=== PATIENT | male | born 1970 | race Caucasian/White ===

== ENCOUNTER 2020-11-28 17:54 | Inpatient (IN) | payer MEDICAID ==
[~2020-11-28] VITALS: Ht 177.8 cm; Wt 139.7 kg
[2020-11-28] MEDS ORDERED: Insulin Reg/NS 100units/100mL 100 ML IV PRN (18:10)
[2020-11-28 18:54] LABS: ABG BASE EXCESS -21.4 mmol/L (-2.0-2.0); ABG HCO3 6.1 mmol/L (22.0-26.0); ABG OXYGEN SATURATION 93.5 % (94-97); ABG PCO2 (T) 18.8 mmHg (35.0-48.0); ABG PO2 (T) 73.2 mmHg (75.0-100.0); ALLEN'S TEST POSITIVE; FCOHb 0.5 % (0.0-3.9); FLOW 6 L/min; FMetHb 0.3 % (0.0-1.5); FO2Hb 92.8 % (94-97); PATIENT TEMPERATURE 36.2; TOTAL HEMOGLOBIN 15.8 G/dl (14.0-18.0)
--- NOTE | 2020-11-28 19:05 | NUR ---
Brother, Jeremie Estrada: [phone]. More information about patient's hx: [phone], ex Ruthann
[2020-11-28] MEDS ORDERED: sodium bicarbonate (8.4%) inj. 150 MEQ in dextrose 5%-water 1,000 ML IV SCH (19:40)
[2020-11-28] MEDS ORDERED: morphine 4 MG/ML inj SYRINge IV ONE (20:15)
[2020-11-28 20:37] LABS: HEMATOCRIT 49.2 % (42.0-52.0); HEMOGLOBIN 15.6 g/dl (14.0-17.9); LYMPHOCYTES % (AUTO) 5.8 % (21-51); MEAN CORPUSCULAR HEMOGLOBIN 30.1 PG (27.0-31.0); MEAN CORPUSCULAR HGB CONC 31.7 g/dL (33.0-36.5); MEAN CORPUSCULAR VOLUME 95.1 FL (78-98); MEAN PLATELET VOLUME 9.1 FL (7.4-10.4); NEUTROPHILS % (AUTO) 82.2 % (42-75); PLATELET COUNT 329 X10'3 (140-440); RED BLOOD COUNT 5.18 X10'6 (4.70-6.10); RED CELL DISTRIBUTION WIDTH 14.3 % (11.5-14.5); WHITE BLOOD COUNT 17.6 X10'3 (4.5-11.0)
[2020-11-28 20:38] LABS: BASOPHILS # (AUTO) 0.1 X10'3 (0-0.2); BASOPHILS % (AUTO) 0.5 % (0-1); EOSINOPHILS % (AUTO) 0.1 % (0-6); MONOCYTES % (AUTO) 11.4 % (2-12); NEUTROPHILS # (AUTO) 14.5 X10'3 (1.8-7.7)
[2020-11-28 20:45] LABS: PARTIAL THROMBOPLASTIN TIME 27 SECONDS (22-32)
[2020-11-28 20:54] LABS: ALANINE AMINOTRANSFERASE 27 U/L (12-78); ALBUMIN 2.7 G/DL (3.4-5.0); ALBUMIN/GLOBULIN RATIO 0.5 (1.1-1.5); ALKALINE PHOSPHATASE 131 IU/L (46-116); ANION GAP 30 (8-16); ASPARTATE AMINO TRANSFERASE 7 U/L (10-37); BILIRUBIN,TOTAL 0.5 MG/DL (0.1-1.0); BLOOD UREA NITROGEN 56 MG/DL (7-18); BUN/CREATININE RATIO 27.6 (5.4-32.0); CALCIUM 9.1 MG/DL (8.5-10.1); CHLORIDE 110 MMOL/L (99-107); CHOL/HDL RATIO 4.5 (0.00-4.99); CHOLESTEROL 200 MG/DL (0-200); CREATININE 2.03 MG/DL (0.60-1.10); HDL CHOLESTEROL 44 MG/DL (35-60); LDL CHOLESTEROL 103 MG/DL (50-100); MAGNESIUM 2.5 MG/DL (1.5-2.4); PHOSPHORUS 3.7 MG/DL (2.3-4.5); POTASSIUM 4.3 MMOL/L (3.5-5.1); SODIUM 147 MMOL/L (135-145); TOTAL PROTEIN 7.9 G/DL (6.4-8.2); TRIGLYCERIDES 346 MG/DL (20-135); eGFR 35 ML/MIN
[2020-11-28 20:57] LABS: GLUCOSE 643 MG/DL (70-104); TOTAL CARBON DIOXIDE 6.9 MMOL/L (24-32)
[2020-11-28 21:28] LABS: TOTAL CELLS COUNTED 100
[2020-11-28 21:29] LABS: ANISOCYTOSIS FEW; PLATELET ESTIMATE NORMAL
--- NOTE | 2020-11-28 21:38 | NUR ---
MD Mitchell contacted regarding patient's blood sugar and current lab results, MD ordering VBG.
[2020-11-28 21:54] LABS: OXYGEN SATURATION (MIXED VEN) 72.8 % (60-80)
[2020-11-28] MEDS ORDERED: potassium CL 20mEq in D5-1/2NS 1,000 ML IV PRN (21:55)
[2020-11-28] MEDS ORDERED: sodium bicarbonate (8.4%) inj. 50 MEQ in dextrose 5% water 500ml 250 ML IV PRN (21:55)
[2020-11-28] MEDS: Insulin Reg/NS 100units/100mL 100 ML IV SCH (21:55)
[2020-11-28] MEDS ORDERED: sodium phosphate inj. 15 MMOL in dextrose 5%-water 250 ML IV PRN (21:55)
[2020-11-28] MEDS ORDERED: sodium bicarbonate (8.4%) inj. 100 MEQ in dextrose 5% water 500ml 500 ML IV PRN (21:55)
[2020-11-28] MEDS ORDERED: potassium Cl 40MEQ/1/2NS 520ml 520 ML IV PRN ×2 (21:55)
[2020-11-28] MEDS ORDERED: insulin regular, human U-100 3ml vial - multi-dose IV PRN (21:55)
[2020-11-28] MEDS ORDERED: potassium Cl 20 mEq SR tablet PO PRN ×2 (21:55)
[2020-11-28] MEDS ORDERED: sodium phosphate inj. 30 MMOL in dextrose 5%-water 250 ML IV PRN (21:55)
[2020-11-28] MEDS ORDERED: Neutra Phos packet PO PRN (21:55)
[2020-11-28 22:57] LABS: LIPASE 2914 U/L (73-393)
[2020-11-28 22:58] LABS: URINE AMPHETAMINE SCREEN NEGATIVE (Neg); URINE BARBITUATE SCREEN NEGATIVE (Neg); URINE BENZODIAZEPINES SCREEN NEGATIVE (Neg); URINE CANNABINOID SCREEN NEGATIVE (Neg); URINE COCAINE SCREEN NEGATIVE (Neg); URINE METHADONE SCREEN NEGATIVE (Neg); URINE OPIATE SCREEN POSITIVE (Neg); URINE PHENCYCLIDINE SCREEN NEGATIVE (Neg)
[2020-11-29] VITALS (22 sets, daily range): BP systolic 133–183; BP diastolic 54–94
--- NOTE | 2020-11-29 00:26 | NUR ---
Patient in room ED 4. I have received report from RELL Khoury and had the opportunity to ask questions.
[2020-11-29] MEDS ORDERED: NO HOME MEDS (00:29)
--- NOTE | 2020-11-29 01:00 | NUR ---
Patient arrived to ICU bed 2014 via [facility] with SPRAY GUN REPAIRER Iraida in attendance. Patient slid over to ICU bed via slide board. Patient placed on monitor. Patient very sleepy. Does wake up to verbal stimuli and will open his eyes to commands, oriented to person and place. Patient continues to be confused and attempts to pull at lines. Upper extremities with soft restraints in place. Oxygen via nasal cannula at 6 lpm currently in patients mouth as patient is breathing through his mouth. Blood glucose assessed to be 511. Upon assumption of care patient with Insulin infusing at 7 u/hr., Bicarb 8.4% 150 mEq in D5W at 200ml/hr to right femoral quad lumen central line. 2 RN skin assessment completed. Bottom is reddened and blanchable. Foam dressing in place. Patient with venous insufficiency to lower extremities, discoloration and dry skin noted.
--- NOTE | 2020-11-29 02:00 | NUR ---
Dr. Mitchell called re: Clarification on what protocol he would like to use. PER MD use DKA protocol. with the exception of the fluid order. Order for 150mEq Sodium Bicarb in sterile water at 200ml./hr. Okay to order labs per protocol. When blood glucose is less than 250 mg/dL call MD for further orders.
[2020-11-29] MEDS ORDERED: sodium bicarbonate (8.4%) inj. 150 MEQ in water for injection, sterile 1,000 ML IV SCH (02:05)
--- NOTE | 2020-11-29 02:14 | NUR ---
Pharmacy called, hospital does not have sterile water for infusion. Will call back MD and have MD speak to pharmacist.
[2020-11-29 03:10] LABS: BASOPHILS % (AUTO) 0.2 % (0-1); EOSINOPHILS % (AUTO) 0 % (0-6); HEMATOCRIT 42.9 % (42.0-52.0); HEMOGLOBIN 14.4 g/dl (14.0-17.9); LYMPHOCYTES # (AUTO) 0.7 X10'3 (1.1-4.8); LYMPHOCYTES % (AUTO) 4.8 % (21-51); MEAN CORPUSCULAR HEMOGLOBIN 29.9 PG (27.0-31.0); MEAN CORPUSCULAR HGB CONC 33.5 g/dL (33.0-36.5); MEAN CORPUSCULAR VOLUME 89.2 FL (78-98); MEAN PLATELET VOLUME 8.5 FL (7.4-10.4); MONOCYTES # (AUTO) 1.8 X10'3 (0-0.9); MONOCYTES % (AUTO) 12.1 % (2-12); NEUTROPHILS % (AUTO) 82.9 % (42-75); PLATELET COUNT 263 X10'3 (140-440); RED BLOOD COUNT 4.81 X10'6 (4.70-6.10); RED CELL DISTRIBUTION WIDTH 13.9 % (11.5-14.5); WHITE BLOOD COUNT 14.5 X10'3 (4.5-11.0)
[2020-11-29 03:25] LABS: ALBUMIN 2.4 G/DL (3.4-5.0); ANION GAP 16 (8-16); BLOOD UREA NITROGEN 48 MG/DL (7-18); BUN/CREATININE RATIO 25.4 (5.4-32.0); CALCIUM 8.7 MG/DL (8.5-10.1); CHLORIDE 115 MMOL/L (99-107); CREATININE 1.89 MG/DL (0.60-1.10); GLUCOSE 446 MG/DL (70-104); POTASSIUM 3.4 MMOL/L (3.5-5.1); SODIUM 152 MMOL/L (135-145); TOTAL CARBON DIOXIDE 20.8 MMOL/L (24-32); eGFR 38 ML/MIN
[2020-11-29 03:43] LABS: LIPASE 2021 U/L (73-393)
[2020-11-29] MEDS ORDERED: potassium cl 20mEq in 1/2 NS 1,000 ML IV SCH (04:00)
[2020-11-29] MEDS: Insulin Reg/NS 100units/100mL 100 ML IV SCH ×2 (04:42→12:13)
[2020-11-29] MEDS ORDERED: potassium CL 20mEq in D5-1/2NS 1,000 ML IV PRN (05:35)
[2020-11-29] MEDS ORDERED: potassium phosphate inj 30 MMOL in normal saline 500ml IV soln 500 ML IV ONE ×3 (06:00→11:30)
--- NOTE | 2020-11-29 06:00 | NUR ---
Patient in room CICU 2014. I have received report from Shelia ZACARIAS and had the opportunity to ask questions and assume patient care.
[2020-11-29 06:18] LABS: PLATELET ESTIMATE NORMAL; TOTAL CELLS COUNTED 100
--- NOTE | 2020-11-29 06:23 | NUR ---
Problems reprioritized. Patient report given, questions answered & plan of care reviewed with RELL Driscoll.
[2020-11-29] MEDS: enoxaparin 30mg/0.3ml syringe SUBCUT SCH (07:43)
[2020-11-29] MEDS: K and/or MAG REPLACEMENT MC SCH ×2 (07:43→20:00)
[2020-11-29] MEDS ORDERED: CefTRIAXone/D5W-Rocephin 1gm 50 ML IV SCH (08:00)
[2020-11-29] MEDS ORDERED: doxycycline inj 100 MG in normal saline 100ml IV soln 100 ML IV SCH (08:00)
[2020-11-29] MEDS ORDERED: potassium phosphate inj 15 MMOL in NS 250ml IV soln 250 ML IV ONE (08:15)
[2020-11-29 09:29] LABS: ALBUMIN 2.4 G/DL (3.4-5.0); ANION GAP 15 (8-16); BLOOD UREA NITROGEN 41 MG/DL (7-18); BUN/CREATININE RATIO 26.8 (5.4-32.0); CHLORIDE 120 MMOL/L (99-107); CREATININE 1.53 MG/DL (0.60-1.10); GLUCOSE 233 MG/DL (70-104); POTASSIUM 3.1 MMOL/L (3.5-5.1); TOTAL CARBON DIOXIDE 21.7 MMOL/L (24-32); eGFR 48 ML/MIN
[2020-11-29 09:32] LABS: SODIUM 157 MMOL/L (135-145)
--- NOTE | 2020-11-29 10:46 | NUR ---
DM Consult "new DX": Pt admit DX DKA, acute pancreatitis, renal failure, PNA, and ALOC per EMR. Pt AOx2/confused w/ A1C 12.1 and GLU 643 on admit now down to 243 this AM per EMR. Lipase currently 2020 down from 2914 on admit w/ notable TG 346. Pt remains NPO at this time receiving IV fluids and insulin drip. Would benefit from thorough DM ed once more appropriate and ensured pt has been given DM DX by MD prior to RD visit this admit. Will monitor for PO diet advancement and tolerance as medically indicated. Rec: 1. advance diet as medically indicated to carb controlled; consider EDUCATION GENERAL MANAGER BSS if ALOC persists 2. monitor for ONS needs pending PO hx 3. routine bowel care 4. weekly wts 5. DM ed once appropriate prior to discharge; following DM DX by MD prior to RD visit Addendum: 11/29/20 at [address] Amended: Links added.
[2020-11-29] MEDS ORDERED: pantoprazole 40 MG vial IV ONE (11:24)
[2020-11-29] MEDS: Potassium Cl inj 40 MEQ in dextrose 5%-water 980 ML IV SCH ×2 (12:37→21:25)
--- NOTE | 2020-11-29 13:39 | NUR ---
Daughter Jaylene at bedside, pt's 3 rings from right hand were removed due to swelling. Jaylene to take rings home.
[2020-11-29] MEDS ORDERED: vancomycin/NS 1 GM ADD-VANTAGE 250 ML IV SCH (15:55)
--- NOTE | 2020-11-29 16:57 | NUR ---
Informed Dr. Reyna that patient pulled central line out, even while restrained. Unable to get another PIV access. Dr. Reyna stated to stop insulin drip and d5w drip and to give kphos 30 mmol and that giving the kphos is the most important thing to give right now. stated to start accuchecks Q4hr and follow herglycemic protocol.
[2020-11-29] MEDS ORDERED: VANCOmycin 2,000MG in NS 500ml IV soln IV ONE (17:00)
[2020-11-29 17:04] LABS: MAGNESIUM 2.2 MG/DL (1.5-2.4); POTASSIUM 3.2 MMOL/L (3.5-5.1)
[2020-11-29 17:47] LABS: PHOSPHORUS 1.2 MG/DL (2.3-4.5)
[2020-11-29] MEDS ORDERED: glucagon, human recombinant 1mg kit SUBCUT PRN (18:15)
[2020-11-29] MEDS ORDERED: dextrose 50%-water 50ml dispensing syringe IV PRN ×2 (18:15)
[2020-11-29] MEDS ORDERED: dextrose ORAL solution 15 GM/59 ML bottle PO PRN ×2 (18:15)
--- NOTE | 2020-11-29 18:19 | NUR ---
Problems reprioritized. Patient report given, questions answered & plan of care reviewed with Shelia ZACARIAS.
--- NOTE | 2020-11-29 18:20 | NUR ---
Patient in room CICU 2014. I have received report from RELL Driscoll and had the opportunity to ask questions and assume patient care.
[2020-11-29] MEDS: lactobacillus rhamnosus 10,000 MMU CELLS/CAPSULE PO SCH (20:00)
[2020-11-29] MEDS: insulin Lispro (HumaLOG) vial - multi-dose SQ SCH (20:09)
[2020-11-29] MEDS: pantoprazole 40 MG vial IV SCH (20:11)
[2020-11-29] MEDS ORDERED: insulin glargine (Lantus) pen - multi-dose SQ SCH (21:00)
--- NOTE | 2020-11-29 21:00 | NUR ---
Patient with increased fatigue, would wake up and fall right back to sleep. Patient would have periods apnea and moist non- productive cough. With the periods of apnea, patient with decreased heart rate to the 60's. ABG and Labs ordered. Patient placed on Venturi mask at 35% fiO2.
[2020-11-29] MEDS: cefepime 1GM/NS ADD-VANTAGE 100 ML IV SCH (21:08)
[2020-11-29 21:48] LABS: ABG BASE EXCESS -8.2 mmol/L (-2.0-2.0); ABG HCO3 18.3 mmol/L (22.0-26.0); ABG OXYGEN SATURATION 94.3 % (94-97); ABG PCO2 (T) 41.9 mmHg (35.0-48.0); ALLEN'S TEST Modified; FCOHb 0.4 % (0.0-3.9); FLOW 4 L/min; FMetHb 0.3 % (0.0-1.5); FO2Hb 93.6 % (94-97); PATIENT TEMPERATURE 37.5; TOTAL HEMOGLOBIN 14.2 G/dl (14.0-18.0)
[2020-11-29 22:27] LABS: BASOPHILS % (AUTO) 0.3 % (0-1); EOSINOPHILS % (AUTO) 0.1 % (0-6); HEMATOCRIT 40.1 % (42.0-52.0); HEMOGLOBIN 13.5 g/dl (14.0-17.9); LYMPHOCYTES # (AUTO) 0.7 X10'3 (1.1-4.8); LYMPHOCYTES % (AUTO) 4.8 % (21-51); MEAN CORPUSCULAR HEMOGLOBIN 30.1 PG (27.0-31.0); MEAN CORPUSCULAR HGB CONC 33.8 g/dL (33.0-36.5); MEAN PLATELET VOLUME 8.6 FL (7.4-10.4); MONOCYTES # (AUTO) 1.2 X10'3 (0-0.9); MONOCYTES % (AUTO) 7.9 % (2-12); NEUTROPHILS # (AUTO) 12.9 X10'3 (1.8-7.7); NEUTROPHILS % (AUTO) 86.9 % (42-75); PLATELET COUNT 216 X10'3 (140-440); RED CELL DISTRIBUTION WIDTH 13.6 % (11.5-14.5); WHITE BLOOD COUNT 14.9 X10'3 (4.5-11.0)
[2020-11-29 22:33] LABS: ALANINE AMINOTRANSFERASE 22 U/L (12-78); ALBUMIN/GLOBULIN RATIO 0.4 (1.1-1.5); ALKALINE PHOSPHATASE 97 IU/L (46-116); ANION GAP 17 (8-16); ASPARTATE AMINO TRANSFERASE 12 U/L (10-37); BILIRUBIN,TOTAL 0.4 MG/DL (0.1-1.0); BLOOD UREA NITROGEN 32 MG/DL (7-18); BUN/CREATININE RATIO 21.9 (5.4-32.0); CALCIUM 8.4 MG/DL (8.5-10.1); CHLORIDE 122 MMOL/L (99-107); CREATININE 1.46 MG/DL (0.60-1.10); GLUCOSE 360 MG/DL (70-104); MAGNESIUM 2.2 MG/DL (1.5-2.4); PHOSPHORUS 2.7 MG/DL (2.3-4.5); POTASSIUM 4.1 MMOL/L (3.5-5.1); TOTAL CARBON DIOXIDE 19.7 MMOL/L (24-32); TOTAL PROTEIN 6.8 G/DL (6.4-8.2); eGFR 51 ML/MIN
[2020-11-29 22:36] LABS: SODIUM 159 MMOL/L (135-145)
[2020-11-29] MEDS ORDERED: dextrose 5%-1/4 normal saline 1,000 ML IV SCH (23:05)
[2020-11-29] MEDS ORDERED: sodium chloride 0.45% 1,000 ML IV SCH (23:10)
[2020-11-29] MEDS: insulin glargine (Lantus) pen - multi-dose SQ SCH (23:17)
--- NOTE | 2020-11-29 23:30 | NUR ---
Dr. Luna called re: patients lab results, chest x-ray and mental status. will place order for BiPap.
[2020-11-30] VITALS (24 sets, daily range): BP systolic 100–158; BP diastolic 63–95
[2020-11-30] MEDS: insulin Lispro (HumaLOG) vial - multi-dose SQ SCH ×6 (01:33→20:41)
[2020-11-30] MEDS ORDERED: labetalol 20mg/4ml (5mg/ml) syringe IV PRN (03:40)
[2020-11-30] MEDS: vancomycin/NS 1 GM ADD-VANTAGE 250 ML IV SCH ×3 (04:24→21:54)
--- NOTE | 2020-11-30 05:00 | NUR ---
Patient cardiac rhythm changed to A-Fib with RVR with rate in the 180's. Dr. Luna called. Vagal attempted without success. to place orders for Lopressor and Amiodarone. Charge nurse aware. AM labs drawn and sent to lab.
[2020-11-30] MEDS ORDERED: amiodarone 150mg/dext, iso-os 100 ML IV ONE (05:30)
[2020-11-30] MEDS ORDERED: metoprolol tartrate 1mg/ml inj IV ONE ×2 (05:30→05:32)
[2020-11-30] MEDS: amiodarone/D5 360MG/200ML BAG 200 ML IV SCH ×4 (05:42→22:26)
--- NOTE | 2020-11-30 06:00 | NUR ---
Patient in room CICU 2014. I have received report from Shelia ZACARIAS and had the opportunity to ask questions and assume patient care.
--- NOTE | 2020-11-30 06:20 | NUR ---
Patient in room CICU 2014. I have received report from RELL Posada and had the opportunity to ask questions and assume patient care.
--- NOTE | 2020-11-30 06:37 | NUR ---
Problems reprioritized. Patient report given, questions answered & plan of care reviewed with RELL Driscoll.
[2020-11-30 06:44] LABS: BASOPHILS % (AUTO) 0.2 % (0-1); EOSINOPHILS % (AUTO) 0.1 % (0-6); HEMATOCRIT 39.3 % (42.0-52.0); HEMOGLOBIN 13.1 g/dl (14.0-17.9); LYMPHOCYTES # (AUTO) 1.3 X10'3 (1.1-4.8); LYMPHOCYTES % (AUTO) 8.8 % (21-51); MEAN CORPUSCULAR HEMOGLOBIN 29.5 PG (27.0-31.0); MEAN CORPUSCULAR HGB CONC 33.4 g/dL (33.0-36.5); MEAN CORPUSCULAR VOLUME 88.4 FL (78-98); MEAN PLATELET VOLUME 8.6 FL (7.4-10.4); MONOCYTES # (AUTO) 1.2 X10'3 (0-0.9); MONOCYTES % (AUTO) 7.9 % (2-12); NEUTROPHILS # (AUTO) 12.6 X10'3 (1.8-7.7); PLATELET COUNT 217 X10'3 (140-440); RED BLOOD COUNT 4.45 X10'6 (4.70-6.10); RED CELL DISTRIBUTION WIDTH 13.7 % (11.5-14.5); WHITE BLOOD COUNT 15.2 X10'3 (4.5-11.0)
[2020-11-30 07:12] LABS: ALANINE AMINOTRANSFERASE 21 U/L (12-78); ALBUMIN/GLOBULIN RATIO 0.4 (1.1-1.5); ALKALINE PHOSPHATASE 98 IU/L (46-116); ANION GAP 16 (8-16); ASPARTATE AMINO TRANSFERASE 11 U/L (10-37); BILIRUBIN,TOTAL 0.4 MG/DL (0.1-1.0); BLOOD UREA NITROGEN 30 MG/DL (7-18); BUN/CREATININE RATIO 21.4 (5.4-32.0); CALCIUM 8.4 MG/DL (8.5-10.1); CHLORIDE 125 MMOL/L (99-107); GLUCOSE 286 MG/DL (70-104); MAGNESIUM 2.5 MG/DL (1.5-2.4); POTASSIUM 3.5 MMOL/L (3.5-5.1); TOTAL CARBON DIOXIDE 22.2 MMOL/L (24-32); eGFR 53 ML/MIN
[2020-11-30 07:21] LABS: SODIUM 163 MMOL/L (135-145)
[2020-11-30] MEDS: cefepime 1GM/NS ADD-VANTAGE 100 ML IV SCH ×2 (07:36→19:37)
[2020-11-30] MEDS: lactobacillus rhamnosus 10,000 MMU CELLS/CAPSULE PO SCH ×2 (07:36→19:37)
[2020-11-30] MEDS: pantoprazole 40 MG vial IV SCH ×2 (07:39→19:37)
[2020-11-30 07:40] LABS: TOTAL CELLS COUNTED 100
[2020-11-30] MEDS: enoxaparin 30mg/0.3ml syringe SUBCUT SCH (07:40)
[2020-11-30 07:41] LABS: PLATELET ESTIMATE NORMAL
[2020-11-30] MEDS ORDERED: diltiazem-NS 100mg/100ml 125 ML IV SCH (07:50)
[2020-11-30] MEDS ORDERED: diltiazem 5mg/ml 5ml inj. IV ONE (07:50)
--- NOTE | 2020-11-30 07:52 | NUR ---
Informed charge nurse Radha ZACARIAS that pt's heart rate is in the 160s in afib, Radha ZACARIAS notifed Dr. Jimenez and received orders.
[2020-11-30] MEDS: K and/or MAG REPLACEMENT MC SCH ×2 (08:00→20:00)
[2020-11-30] MEDS ORDERED: VANCOMYCIN LEVEL IV ONE (09:30)
[2020-11-30 09:41] LABS: MAGNESIUM 2.3 MG/DL (1.5-2.4); PHOSPHORUS 1.6 MG/DL (2.3-4.5); POTASSIUM 3.2 MMOL/L (3.5-5.1)
[2020-11-30] MEDS: dextrose 5%-water 1,000 ML IV SCH ×2 (09:42→19:52)
--- NOTE | 2020-11-30 10:00 | NUR ---
wound care orders for ulcers to BLE. no pictures in chart. Upon examination of BLE with primary nurse at bedside, no open wounds to either BLE. No signs of ulcers. Patient does have noted dryness to BLE which skin repair cream was given to nursing to be applied. Primary nurse agreed, no open wounds and wound care was noted needed.
[2020-11-30] MEDS ORDERED: digoxin 250mcg/ml 2ml ampule IV ONE (11:15)
--- NOTE | 2020-11-30 11:52 | NUR ---
Malnutrition Consult: Pt advanced to heart healthy/carb controlled diet PO pending. Pt has normal strength, no edema/wounds, and appears WD/WN during RD visible assessment at critical care rounds. Pt remains ALOC AOx2/confused and unsure of any wt loss hx per EMR. Does not meet minimum two malnutrition criteria at this time. Addendum: 11/30/20 at [address] Amended: Links added.
[2020-11-30] MEDS: Neutra Phos packet PO SCH ×2 (12:55→20:28)
[2020-11-30 13:26] LABS: CLARITY,URINE SLIGHTLY CLOUDY (Clear); COLOR,URINE YELLOW (Yellow); GLUCOSE, URINE >=1000 mg/dl (Neg); KETONES,URINE 15 mg/dl (Neg); LEUKOCYTE ESTERASE ,URINE NEGATIVE (Neg); NITRITES, URINE NEGATIVE (Neg); OCCULT BLOOD,URINE LARGE (Neg); PROTEIN,URINE 100 mg/dl (Neg); UROBILINOGEN,URINE 0.2 E.U/dL (0.2-1.0)
[2020-11-30] MEDS: diltiazem-NS 100mg/100ml 100 ML IV SCH ×2 (13:29→20:16)
[2020-11-30 13:30] LABS: UA COLLECTION TYPE FOLEY CATH
[2020-11-30 13:33] LABS: RBC,URINE 20-50 /HPF (0-2); WBC,URINE 0-4 /HPF (0-4)
[2020-11-30 13:34] LABS: BACTERIA,URINE 1+ /HPF (Neg)
[2020-11-30 13:35] LABS: MUCUS STRANDS NONE SEEN /LPF (Neg); SQUAMOUS EPITHELIAL CELL,UR FEW /LPF (FEW)
[2020-11-30 15:54] LABS: MAGNESIUM 2.3 MG/DL (1.5-2.4); PHOSPHORUS 1.6 MG/DL (2.3-4.5); POTASSIUM 3.2 MMOL/L (3.5-5.1)
--- NOTE | 2020-11-30 18:20 | NUR ---
Patient in room CICU 2015. I have received report from RELL Driscoll and had the opportunity to ask questions and assume patient care. Patient is currently restrained with sitter at bedside. Patient is groggy and does awaken to verbal stimuli. Patient is alert and oriented x3. Patient given discontinue criteria for wrist restraints. Patient was unaware that he had pulled out a IV line. Patient relates that he is "very thirsty and hungry". Plan of care reviewed with patient.
--- NOTE | 2020-11-30 18:20 | NUR ---
Problems reprioritized. Patient report given, questions answered & plan of care reviewed with RELL Posada.
--- NOTE | 2020-11-30 18:20 | NUR ---
Problems reprioritized. Patient report given, questions answered & plan of care reviewed with Shelia ZACARIAS.
--- NOTE | 2020-11-30 18:40 | NUR ---
Patient with nasal cannula in place at 0.5 lpm oxygen. Patient's wrist restraints removed. Assisted patient with eating dinner. Encouraged patient to feed himself, initially patient very weak, with encouragement patient became better at moving upper extremities. Patient educated on nutrition and fluid intake. Advised patient to take it slow and report any nausea.
[2020-11-30] MEDS: insulin glargine (Lantus) pen - multi-dose SQ SCH (20:42)
--- NOTE | 2020-11-30 22:00 | NUR ---
Patient placed on BiPap mask for sleep, patient is unrestrained, in view of RN. So far patient with appropriate behavior.
[2020-12-01] VITALS (19 sets, daily range): BP systolic 106–143; BP diastolic 59–89
[2020-12-01] MEDS: insulin Lispro (HumaLOG) vial - multi-dose SQ SCH ×5 (00:42→19:31)
[2020-12-01] MEDS: diltiazem-NS 100mg/100ml 100 ML IV SCH ×2 (01:22→08:28)
[2020-12-01 04:10] LABS: BASOPHILS # (AUTO) 0.1 X10'3 (0-0.2); BASOPHILS % (AUTO) 0.3 % (0-1); EOSINOPHILS # (AUTO) 0.1 X10'3 (0-0.9); EOSINOPHILS % (AUTO) 0.7 % (0-6); HEMATOCRIT 36.1 % (42.0-52.0); HEMOGLOBIN 12.2 g/dl (14.0-17.9); LYMPHOCYTES # (AUTO) 1.4 X10'3 (1.1-4.8); LYMPHOCYTES % (AUTO) 8.6 % (21-51); MEAN CORPUSCULAR HEMOGLOBIN 29.9 PG (27.0-31.0); MEAN CORPUSCULAR HGB CONC 33.8 g/dL (33.0-36.5); MEAN CORPUSCULAR VOLUME 88.4 FL (78-98); MEAN PLATELET VOLUME 8.6 FL (7.4-10.4); MONOCYTES # (AUTO) 1.1 X10'3 (0-0.9); MONOCYTES % (AUTO) 6.8 % (2-12); NEUTROPHILS # (AUTO) 13.9 X10'3 (1.8-7.7); NEUTROPHILS % (AUTO) 83.6 % (42-75); PLATELET COUNT 157 X10'3 (140-440); RED BLOOD COUNT 4.08 X10'6 (4.70-6.10); RED CELL DISTRIBUTION WIDTH 13.6 % (11.5-14.5); WHITE BLOOD COUNT 16.7 X10'3 (4.5-11.0)
[2020-12-01 04:19] LABS: ALANINE AMINOTRANSFERASE 18 U/L (12-78); ALBUMIN 1.8 G/DL (3.4-5.0); ALBUMIN/GLOBULIN RATIO 0.4 (1.1-1.5); ALKALINE PHOSPHATASE 98 IU/L (46-116); ANION GAP 9 (8-16); ASPARTATE AMINO TRANSFERASE 19 U/L (10-37); BILIRUBIN,TOTAL 0.4 MG/DL (0.1-1.0); BLOOD UREA NITROGEN 16 MG/DL (7-18); BUN/CREATININE RATIO 15.1 (5.4-32.0); CALCIUM 7.8 MG/DL (8.5-10.1); CHLORIDE 119 MMOL/L (99-107); CREATININE 1.06 MG/DL (0.60-1.10); GLUCOSE 242 MG/DL (70-104); MAGNESIUM 2.1 MG/DL (1.5-2.4); PHOSPHORUS 1.9 MG/DL (2.3-4.5); TOTAL CARBON DIOXIDE 26.8 MMOL/L (24-32); TOTAL PROTEIN 6.2 G/DL (6.4-8.2); eGFR 73 ML/MIN
[2020-12-01 04:21] LABS: SODIUM 155 MMOL/L (135-145)
[2020-12-01] MEDS: dextrose 5%-water 1,000 ML IV SCH ×2 (04:35→05:57)
[2020-12-01] MEDS ORDERED: POTASSIUM BICARB 20meq eff tab 20 MEQ TABLET.EFF PO PRN (04:45)
[2020-12-01] MEDS ORDERED: potassium phosphate inj 30 MMOL in normal saline 500ml IV soln 500 ML IV ONE (04:55)
--- NOTE | 2020-12-01 05:15 | NUR ---
Rounds with Dr. Mitchell. Critical lab values reviewed: K 3.0, Na 155, Phos 1.9, to order K/ Phos replacement.
[2020-12-01] MEDS: amiodarone/D5 360MG/200ML BAG 200 ML IV SCH (05:46)
--- NOTE | 2020-12-01 06:26 | NUR ---
Patient in room CICU 2014. I have received report from RELL Posada and had the opportunity to ask questions and assume patient care.
--- NOTE | 2020-12-01 06:26 | NUR ---
Problems reprioritized. Patient report given, questions answered & plan of care reviewed with RELL Cooper.
[2020-12-01] MEDS: pantoprazole 40 MG vial IV SCH ×2 (07:58→19:19)
[2020-12-01] MEDS: Neutra Phos packet PO SCH ×3 (07:59→20:52)
[2020-12-01] MEDS: POTASSIUM BICARB 20meq eff tab 20 MEQ TABLET.EFF PO PRN (07:59)
[2020-12-01] MEDS: lactobacillus rhamnosus 10,000 MMU CELLS/CAPSULE PO SCH ×2 (07:59→19:20)
[2020-12-01] MEDS: enoxaparin 30mg/0.3ml syringe SUBCUT SCH (08:00)
[2020-12-01 08:01] LABS: PLATELET ESTIMATE NORMAL; TOTAL CELLS COUNTED 100
[2020-12-01] MEDS: K and/or MAG REPLACEMENT MC SCH ×2 (08:11→19:21)
[2020-12-01] MEDS: cefepime 1GM/NS ADD-VANTAGE 100 ML IV SCH ×2 (09:18→19:19)
[2020-12-01] MEDS ORDERED: VANCOMYCIN LEVEL IV ONE (09:30)
[2020-12-01] MEDS: vancomycin/NS 1 GM ADD-VANTAGE 250 ML IV SCH (11:50)
[2020-12-01 12:07] LABS: VANCOMYCIN,TROUGH 9.3 UG/ML (6.0-14.0)
--- NOTE | 2020-12-01 14:15 | NUR ---
Patient in room PCU 3026. I have received report from RELL Calhoun and had the opportunity to ask questions and assume patient care.
--- NOTE | 2020-12-01 15:37 | NUR ---
0700-Patient alert and oriented, able to follow commands, speech garbled but appropriate, weak but improving., 1000- critical care rounds, transfer to PCU, increase lantus to 35 q hs. dc amiodarone IV, change to PO. PT eval and tx.
--- NOTE | 2020-12-01 15:38 | NUR ---
Problems reprioritized. Patient report given, questions answered & plan of care reviewed with Deborah .
--- NOTE | 2020-12-01 17:46 | NUR ---
Paged Dr. Zapata PAGER ID: [phone] MESSAGE: NEWTON Hernandez [id number]; patient's stomach very distended and rigid, hyperactive bowel sounds; nausea and some emesis. Deborah ZACARIAS [phone]
--- NOTE | 2020-12-01 18:24 | NUR ---
Patient in room PCU 3026. I have received report from RELL Goldman and had the opportunity to ask questions and assume patient care.
--- NOTE | 2020-12-01 18:38 | NUR ---
Problems reprioritized. Patient report given, questions answered & plan of care reviewed with RELL Almeida.
--- NOTE | 2020-12-01 19:02 | NUR ---
PAGER ID: [phone] MESSAGE: Re:Cesar Taylor admitted 11/28 for DKA pancreatitis and PNA pt currently on Cardizem drip running at 12 mg/hr on icu titrate protocol HR 112 bp 143/78 would like to know parameters for telemetry floor thank you Elle ZACARIAS ext [phone]
[2020-12-01] MEDS: amiodarone 200mg tablet PO SCH (19:20)
[2020-12-01] MEDS: VANCOmycin 1250MG/NS 250ml Bag 250 ML IV SCH (20:56)
[2020-12-01] MEDS: insulin glargine (Lantus) pen - multi-dose SQ SCH (20:58)
[2020-12-02] VITALS (15 sets, daily range): BP systolic 76–137; BP diastolic 41–80
[2020-12-02] MEDS: diltiazem-NS 100mg/100ml 100 ML IV SCH ×4 (02:10→23:29)
--- NOTE | 2020-12-02 03:56 | NUR ---
Md Peck RE: Cesar Taylor 50 M admitted 11/28 DKA, pancreatitis and PNA. wanted to make you aware pt On Cardizem drip at 12mg/hr had an episode of heart rate of 30. Current pulse is 86 blood pressure 119/63.
--- NOTE | 2020-12-02 04:00 | NUR ---
MD Peck gave telephone order to reduce Cardizem drip to 10 ml/hr due to episode of 30-RI and BP of 119/63. Will continue to monitor
--- NOTE | 2020-12-02 05:36 | NUR ---
MD Peck paged MESSAGE: Re: Cesar Taylor 50M tele [id number] admitted for DKA, pancreatitis and PNA, Pt went into Aflutter at 0500 and is currently in Aflutter. Currently on Cardizem drip at 10 mg/hr. RELL Almeida tele ext [phone]
--- NOTE | 2020-12-02 05:40 | NUR ---
MD Peck called back no change in orders will continue to monitor. FRANK 120/80 [phone]
--- NOTE | 2020-12-02 06:23 | NUR ---
Problems reprioritized. Patient report given, questions answered & plan of care reviewed with RELL Scales.
--- NOTE | 2020-12-02 06:25 | NUR ---
Patient in room PCU 3026. I have received report from Elle ZACARIAS and had the opportunity to ask questions and assume patient care.
[2020-12-02] MEDS: K and/or MAG REPLACEMENT MC SCH ×2 (08:00→20:00)
[2020-12-02] MEDS: VANCOmycin 1250MG/NS 250ml Bag 250 ML IV SCH ×2 (08:00→19:41)
[2020-12-02] MEDS: pantoprazole 40 MG vial IV SCH ×2 (08:13→20:24)
[2020-12-02] MEDS: lactobacillus rhamnosus 10,000 MMU CELLS/CAPSULE PO SCH ×2 (08:16→20:24)
[2020-12-02] MEDS: amiodarone 200mg tablet PO SCH ×2 (08:17→20:24)
[2020-12-02] MEDS: Neutra Phos packet PO SCH ×3 (08:17→20:24)
[2020-12-02] MEDS: enoxaparin 30mg/0.3ml syringe SUBCUT SCH (08:18)
--- NOTE | 2020-12-02 08:49 | NUR ---
Page sent to PICC nurse: I need help with an IV for Cesar Taylor room [id number]. We have tried without success, and he has incompatible medication. Thank you
[2020-12-02 09:13] LABS: BASOPHILS # (AUTO) 0.1 X10'3 (0-0.2); BASOPHILS % (AUTO) 0.4 % (0-1); EOSINOPHILS # (AUTO) 0.1 X10'3 (0-0.9); EOSINOPHILS % (AUTO) 0.7 % (0-6); HEMATOCRIT 37.8 % (42.0-52.0); HEMOGLOBIN 12.7 g/dl (14.0-17.9); LYMPHOCYTES # (AUTO) 1.8 X10'3 (1.1-4.8); LYMPHOCYTES % (AUTO) 12.3 % (21-51); MEAN CORPUSCULAR HEMOGLOBIN 29.3 PG (27.0-31.0); MEAN CORPUSCULAR HGB CONC 33.7 g/dL (33.0-36.5); MEAN CORPUSCULAR VOLUME 87.1 FL (78-98); MEAN PLATELET VOLUME 8.6 FL (7.4-10.4); MONOCYTES # (AUTO) 1.3 X10'3 (0-0.9); MONOCYTES % (AUTO) 9.3 % (2-12); NEUTROPHILS # (AUTO) 11.2 X10'3 (1.8-7.7); NEUTROPHILS % (AUTO) 77.3 % (42-75); PLATELET COUNT 154 X10'3 (140-440); RED BLOOD COUNT 4.33 X10'6 (4.70-6.10); RED CELL DISTRIBUTION WIDTH 13.7 % (11.5-14.5); WHITE BLOOD COUNT 14.5 X10'3 (4.5-11.0)
[2020-12-02 09:25] LABS: ALBUMIN 1.7 G/DL (3.4-5.0); ANION GAP 12 (8-16); BLOOD UREA NITROGEN 15 MG/DL (7-18); BUN/CREATININE RATIO 15.8 (5.4-32.0); CALCIUM 8.2 MG/DL (8.5-10.1); CHLORIDE 110 MMOL/L (99-107); CREATININE 0.95 MG/DL (0.60-1.10); GLUCOSE 244 MG/DL (70-104); POTASSIUM 3.5 MMOL/L (3.5-5.1); SODIUM 147 MMOL/L (135-145); TOTAL CARBON DIOXIDE 25.5 MMOL/L (24-32); eGFR 83 ML/MIN
[2020-12-02] MEDS: insulin Lispro (HumaLOG) vial - multi-dose SQ SCH ×3 (09:49→19:28)
[2020-12-02 09:52] LABS: TOTAL CELLS COUNTED 100
[2020-12-02 09:53] LABS: PLATELET ESTIMATE NORMAL
[2020-12-02] MEDS: cefepime 1GM/NS ADD-VANTAGE 100 ML IV SCH ×4 (11:26→23:30)
--- NOTE | 2020-12-02 15:49 | NUR ---
Reassessment: DKA resolved per MD note. Pt documented as A/O x 4 today for the first time since admit. TC to RN who reports pt has been told he has diabetes. Will f/u with pt for written and verbal DM education. Patient's PO intake is improving, initially with 50% PO intake now up to 75-100% PO intake on heart healthy CHO controlled diet. LBM 11/28. D/w dietary to send power pudding with next meal to assist with bowel regularity. Will continue to follow. Rec: 1. Advance to CHO controlled diet given no heart related PMH 2. Routine bowel care 3. Scaled weights per rx 4. DM ed once appropriate prior to discharge; New DM dx with A1c 12.1% Addendum: 12/02/20 at [address] Amended: Links added.
--- NOTE | 2020-12-02 18:12 | NUR ---
Problems reprioritized. Patient report given, questions answered & plan of care reviewed with Bebeto ZACARIAS.
--- NOTE | 2020-12-02 18:39 | NUR ---
Patient in room PCU 3019. I have received report from Connie ZACARIAS and had the opportunity to ask questions and assume patient care.
[2020-12-02] MEDS: insulin glargine (Lantus) pen - multi-dose SQ SCH (21:24)
[2020-12-03] VITALS (13 sets, daily range): BP systolic 112–142; BP diastolic 54–87
--- NOTE | 2020-12-03 06:38 | NUR ---
Problems reprioritized. Patient report given, questions answered & plan of care reviewed with carolyn gay.
--- NOTE | 2020-12-03 06:39 | NUR ---
Patient in room PCU 3026. I have received report from RELL GALARZA, and had the opportunity to ask questions and assume patient care.
[2020-12-03 07:20] LABS: BASOPHILS # (AUTO) 0.1 X10'3 (0-0.2); BASOPHILS % (AUTO) 0.5 % (0-1); EOSINOPHILS # (AUTO) 0.2 X10'3 (0-0.9); EOSINOPHILS % (AUTO) 1.8 % (0-6); HEMATOCRIT 35.4 % (42.0-52.0); HEMOGLOBIN 11.9 g/dl (14.0-17.9); LYMPHOCYTES # (AUTO) 1.5 X10'3 (1.1-4.8); LYMPHOCYTES % (AUTO) 12.7 % (21-51); MEAN CORPUSCULAR HEMOGLOBIN 30.1 PG (27.0-31.0); MEAN CORPUSCULAR HGB CONC 33.7 g/dL (33.0-36.5); MEAN CORPUSCULAR VOLUME 89.4 FL (78-98); MEAN PLATELET VOLUME 8.4 FL (7.4-10.4); MONOCYTES # (AUTO) 1.8 X10'3 (0-0.9); NEUTROPHILS # (AUTO) 8.4 X10'3 (1.8-7.7); PLATELET COUNT 141 X10'3 (140-440); RED BLOOD COUNT 3.96 X10'6 (4.70-6.10); RED CELL DISTRIBUTION WIDTH 13.8 % (11.5-14.5); WHITE BLOOD COUNT 11.9 X10'3 (4.5-11.0)
[2020-12-03] MEDS: cefepime 1GM/NS ADD-VANTAGE 100 ML IV SCH (07:20)
[2020-12-03] MEDS: pantoprazole 40 MG vial IV SCH (07:21)
[2020-12-03] MEDS ORDERED: VANCOMYCIN LEVEL IV ONE (07:30)
[2020-12-03 07:32] LABS: ALANINE AMINOTRANSFERASE 31 U/L (12-78); ALBUMIN 1.5 G/DL (3.4-5.0); ALBUMIN/GLOBULIN RATIO 0.3 (1.1-1.5); ALKALINE PHOSPHATASE 84 IU/L (46-116); ANION GAP 10 (8-16); ASPARTATE AMINO TRANSFERASE 17 U/L (10-37); BILIRUBIN,TOTAL 0.4 MG/DL (0.1-1.0); BLOOD UREA NITROGEN 17 MG/DL (7-18); BUN/CREATININE RATIO 18.1 (5.4-32.0); CALCIUM 7.9 MG/DL (8.5-10.1); CHLORIDE 108 MMOL/L (99-107); CREATININE 0.94 MG/DL (0.60-1.10); GLUCOSE 209 MG/DL (70-104); POTASSIUM 3.4 MMOL/L (3.5-5.1); SODIUM 144 MMOL/L (135-145); TOTAL CARBON DIOXIDE 26.4 MMOL/L (24-32); TOTAL PROTEIN 6.2 G/DL (6.4-8.2); VANCOMYCIN,TROUGH 13.5 UG/ML (6.0-14.0); eGFR 84 ML/MIN
[2020-12-03] MEDS: amiodarone 200mg tablet PO SCH (07:32)
[2020-12-03] MEDS: lactobacillus rhamnosus 10,000 MMU CELLS/CAPSULE PO SCH (07:32)
[2020-12-03] MEDS: enoxaparin 30mg/0.3ml syringe SUBCUT SCH (07:34)
[2020-12-03] MEDS: K and/or MAG REPLACEMENT MC SCH (08:00)
[2020-12-03] MEDS: Neutra Phos packet PO SCH ×2 (08:00→14:18)
--- NOTE | 2020-12-03 08:33 | NUR ---
Paged PICC nurse Room 3028O, Cesar Taylor. Please assist with hard stick. Has Cardizem gtt and non compatible abx. Thanks, Maria Elena [phone]
[2020-12-03] MEDS ORDERED: VANCOMYCIN 1,500MG inj. 1,500 MG in normal saline 500ml IV soln 300 ML IV SCH (09:00)
[2020-12-03] MEDS: POTASSIUM BICARB 20meq eff tab 20 MEQ TABLET.EFF PO PRN ×2 (09:41→14:17)
[2020-12-03] MEDS: insulin Lispro (HumaLOG) vial - multi-dose SQ SCH ×2 (09:48→14:25)
[2020-12-03] MEDS: diltiazem-NS 100mg/100ml 100 ML IV SCH (09:50)
[2020-12-03 09:52] LABS: NUCLEATED RED BLOOD CELLS 1 /100WBC (0-0); TOTAL CELLS COUNTED 100
[2020-12-03 09:56] LABS: PLATELET ESTIMATE NORMAL; POLYCHROMASIA 1+
[2020-12-03] MEDS ORDERED: LANTUS SQ (10:13)
[2020-12-03] MEDS ORDERED: PANT40TA54 PO (10:16)
[2020-12-03] MEDS ORDERED: LEVO500T89 PO (10:16)
[2020-12-03] MEDS ORDERED: METF-950 PO (10:16)
[2020-12-03] MEDS ORDERED: METO50TA16 PO (11:15)
--- NOTE | 2020-12-03 12:00 | NUR ---
D/C delayed: Dr Romano wanted to add metoprolol to d/c ppwk and d/c cardizem.
[2020-12-03] MEDS ORDERED: AMIO200T67 PO (13:10)
--- NOTE | 2020-12-03 13:28 | NUR ---
All medications were called into pharmacy ([facility] in [place]) [phone]. Amiodarone HCl, lantus, levofloxacin, metformin, metoprolo tartrate, protonix.
--- NOTE | 2020-12-03 15:01 | NUR ---
F/u: Pt seen at bedside for written DM education with thorough verbal review. RD discussed foods that contain carbs, consistent carb intake in moderation, protein and fat intake, portion sizes, reading the nutrition facts label, managing diabetes when sick, managing a low blood sugar, HbA1c and blood sugar levels, s/s of DKA, and the role of exercise. RD encouraged pt to f/u with MD, check his BG levels frequently, and take his medications per rx. All of patient's questions were answered at this time. RD contact information provided and pt encouraged to reach out if needed. Pt endorses a good appetite and denies food allergies, difficulty chewing/swallowing, or constipation/diarrhea. LBM 7/14 per pt despite documentation of LBM being 7/[address] d/w patient's bedside RN recommendation for f/u education on administering medications for discharge as pt still unsure of what medications he will be on. Per EMR pt with Lantus and Metformin rx for discharge. Will continue to follow. Addendum: 12/03/20 at [address] Amended: Links added.
--- NOTE | 2020-12-03 17:32 | NUR ---
DISCHARGE SUMMARY, LABS AND MEDS REVIEWED WITH PT AND OPPORTUNITY WAS GIVEN FOR QUESTIONS AND ANSWERS. FOLLOW UP INSTRUCTION REVIEWED. PRESCRIPTIONS PHONED TO LISA JOHN. PIV'S REMOVED WITH TIPS INTACT, PROCEDURE TOLERATED WELL BY PT. PT STABLE FOR DISCHARGE PER MD. BELONGINGS RETURNED TO PT. PT TRANSPORTED HOME BY FRIEND IN PRIVATE VEHICLE.
--- NOTE | 2020-12-03 17:35 | NUR ---
Orientee documentation: I have reviewed and agree with all interventions, assessments performed and documented by RELL King.
[2020-12-03] MEDS ORDERED: metoprolol tartrate 12.5mg (1/2 tablet) PO SCH (20:00)
[2020-12-04] MEDS ORDERED: VANCOMYCIN LEVEL IV ONE (20:30)
== END 2020-12-03 17:30 | disposition home or self-care (01) | DRG 282 ==
LOC: ER 17:55 → ED HOLD 21:56 → CICU 2S 11-29 01:00 → PCU 3S 12-01 16:14
PROVIDERS: ADMIT Internal Medicine; ATTEND Internal Medicine
PROC: 06HY33Z Insertion of Infusion Device into Lower Vein, Percutaneous Approach (ICD-10-PCS; 2020-11-28)
PROC: B54BZZA Ultrasonography of Right Lower Extremity Veins, Guidance (ICD-10-PCS; 2020-11-28)
PROC: 5A09357 Assistance with Respiratory Ventilation, Less than 24 Consecutive Hours, Continuous Positive Airway Pressure (ICD-10-PCS; principal; 2020-11-30)
PROC: 5A09357 Assistance with Respiratory Ventilation, Less than 24 Consecutive Hours, Continuous Positive Airway Pressure (ICD-10-PCS; 2020-12-01)
DX: K85.90 Acute pancreatitis without necrosis or infection, unspecified (principal); E11.10 Type 2 diabetes mellitus with ketoacidosis without coma; J18.9 Pneumonia, unspecified organism; E87.0 Hyperosmolality and hypernatremia; N17.9 Acute kidney failure, unspecified; E83.39 Other disorders of phosphorus metabolism; E11.22 Type 2 diabetes mellitus with diabetic chronic kidney disease; N18.9 Chronic kidney disease, unspecified; R80.9 Proteinuria, unspecified
CPT/HCPCS: 36415; 36600; 70450; 71045; 74176; 76937; 80048; 80053; 80061; 80202; 80305; 81001; 82140; 82330; 82803; 82810; 82948; 83036; 83605; 83690; 83735; 84100; 84132; 84145; 84439; 84443; 85007; 85018; 85025; 85610; 85730; 87040; 93306; 93925; 94660; 94760; 97110; 97161; 97530; 99285; C9113; G0378; J0692; J0696; J1160; J1650; J1815; J2270; J3370; J3480; J3490; J7040; J7050; J7070